=== PATIENT | male | born 1960 | race Caucasian/White ===

== ENCOUNTER → 2023-12-29 | Outpatient (CLI) | payer OTHER ==
--- NOTE | 2023-12-29 12:05 | CTL ---
EXAMINATION TYPE: CT Low Dose Lung DATE OF EXAM ORDERED: 12/29/2023 HISTORY: Greater than 50 pack-year history. Lung cancer screening CT DLP: 1.[address] CTDI: 64.30 mGy Automated exposure control for dose reduction was used. SCREENING VISIT: Initial. COMPARISON: None available. TECHNIQUE: Low dose computed tomography scan was performed through the chest at 1 mm thick sections a nd reconstructed images in multiple planes at 1 mm and [address] DIAGNOSTIC QUALITY: Satisfactory FINDINGS: LUNG NODULES: There are no significant pulmonary nodules. LUNGS: COPD: Severity: Moderate to severe diffuse centrilobular emphysema. Fibrosis: Severity: None Lymph nodes: No adenopathy. Other findings: RIGHT PLEURAL SPACE: Effusion: None Calcification: None Thickening: None Pneumothorax: None LEFT PLEURAL SPACE: Effusion: None Calcification: None Thickening: None Pneumothorax: None HEART: Heart Size: Normal Coronary Calcification: Mild coronary artery calcification. Pericardial Effusion: None OTHER FINDINGS: Upper abdomen: None Bony thorax: None Supraclavicular region: None Other: None IMPRESSION: 1. Negative lung cancer screening examination for significant pulmonary nodules. 2. Moderate to significant emphysema. 3. Mild coronary artery calcification. CT LUNG RAD AND CT CHEST RECOMMENDATION: Lung-Rad 1 Negative: Continue annual screening with LDCT in 12 months. S Modifier (other clinically significant findings): None.
== END | disposition home or self-care (01) ==
LOC: RADCTMAIN 09:00
PROVIDERS: ATTEND Family Medicine
DX: Z12.2 Encounter for screening for malignant neoplasm of respiratory organs (principal); I25.10 Atherosclerotic heart disease of native coronary artery without angina pectoris; J43.2 Centrilobular emphysema; F17.210 Nicotine dependence, cigarettes, uncomplicated
CPT/HCPCS: 71271